=== PATIENT | female | born 1975 | race Caucasian/White ===

== ENCOUNTER 2021-01-20 22:27 | Emergency (ER) | payer OTHER ==
[~2021-01-20] VITALS: Ht 172.7 cm; Wt 83.9 kg
[2021-01-20] MEDS ORDERED: CASIRIVIMAB/IMDEVIMAB 10 ML in SODIUM CHLORIDE 0.9% 100 ML IV ONE (22:30)
[2021-01-20] MEDS ORDERED: SODIUM CHLORIDE 0.9% 100 ML ONE (22:41)
[2021-01-20 23:20] LABS: CLARITY,URINE CLEAR (CLEAR); COLOR,URINE YELLOW (YELLOW)
[2021-01-20 23:21] LABS: BACTERIA,URINE MODERATE /HPF; EPITHELIAL CELLS,URINE MODERATE /LPF; KETONES,URINE NEGATIVE (NEGATIVE); LEUKOCYTE ESTERASE ,URINE NEGATIVE (NEGATIVE); NITRITE,URINE NEGATIVE (NEGATIVE); PROTEIN,URINE DIPSTICK NEGATIVE (NEGATIVE); URINE UROBILINOGEN 0.2 mg/dL (0.2 - 1); WBC,URINE (MAN) 0-5 /HPF (0-5)
== END 2021-01-21 00:30 | disposition home or self-care (01) ==
LOC: ER 22:30
DX: Z20.822 Contact with and (suspected) exposure to COVID-19 (principal)
CPT/HCPCS: 81001; 99283; J7050